=== PATIENT | female | born 1945 | race Caucasian/White ===

== ENCOUNTER → 2016-04-14 | Outpatient (RCR) | payer MEDICARE | END | disposition home or self-care (01) | LOC: PT 01-15 12:11 | PROVIDERS: ATTEND Orthopaedic Surgery | DX: S46.011D Strain of muscle(s) and tendon(s) of the rotator cuff of right shoulder, subsequent encounter (principal); V19.9XXD Pedal cyclist (driver) (passenger) injured in unspecified traffic accident, subsequent encounter | CPT/HCPCS: 97016; 97110; 97140; G8984; G8985 ==

== ENCOUNTER 2016-06-09 08:15 | Outpatient (RCR) | payer MEDICARE ==
--- NOTE | 2016-06-02 15:08 | PT/OT/ST INITIAL EVALUATION ---
Department of Health and Human Services Form Approved [facility] Care Financing Administration OMB No. [id number] PLAN OF CARE/ASSESSMENT FOR OUTPATIENT REHABILITATION (Complete for Initial Claims Only) 1. PATIENT'S NAME Lolly Shukla 2. ACC # [id number] 3. [facility] [id number] 4. PROVIDER NO. [id number] 5. TYPE: PT 6. PRIOR THERAPY The patient had therapy for her right shoulder up until March 2016. None prior for her right knee. 7. PRIMARY DX Right knee scope 8. SECONDARY DX Right knee pain, right knee stiffness, weakness, and difficulty walking. 9. ONSET DATE Surgery 05/26/2016 10. REFERRAL DATE 05/26/2016 11. SOC. DATE 05/28/2016 12. TIME OF EVAL 8:17 a.m. to 9:05 a.m. 12. REFERR[address] PHYSICIAN Dr. Cheema 13. CHARGES/UNITS PT evaluation low complexity 70772 Therapeutic exercise 75371, 2 units 14. G CODES The Lower Extremity Functional Scale rates the patient as [id number] 35% limited and the goal is E9959-GH 0% limited in order to be able to ambulate and return to cleaning her home without deviation. 15. PRIOR LEVEL OF FUNCTION; PERTINENT HISTORY (Prior therapy results, reason for referral.) S: Prior to therapy, the patient did consent to today's evaluation and treatment. The patient is a 70-year-old female referred to physical therapy by Dr. Cheema to address functional limitations secondary to right knee scope performed on 05/26/2016. Mechanism of injury: There was no specific injury. The patient's right knee pain has gotten worse gradually over time due to arthritis. Primary Complaint: Pain in the right knee. Occupational and social history: The patient states she is retired, however, she does currently work in real estate. Functional performance/Prior level of function: The patient was independent in all activities with pain prior to surgery on 05/26/2016. The patient was participating in exercise classes at the [facility], as well. Pain rating: The patient rates the current pain level as 2/10 and describes the pain as an achy pain in her right knee. The pain does not go to any other location. Obstacles to delivery of care: None noted. Aggravating factors: Include walking. Relieving factors: Include resting or standing still. Diagnostic testing: The patient had an MRI prior to surgery and was told that she was [id number] in her right knee. Past medical history: Includes osteoarthritis, history of bone fracture many years ago, which has healed, hypothyroidism. Past surgical history: Includes a left knee scope a couple of years ago, thyroidectomy, hysterectomy, tubal ligation, right rotator cuff repair, LASIK eye surgery and cataract surgery on both eyes. Current medications: Synthroid, sotalol. The patient states she is not currently taking anything for right knee pain. Leisure activities: The patient attends exercises classes at the [facility] frequently. Activity level: Listed as medium. Personal health rating: Listed as good. Patient's Goal: Include using her knee without discomfort. 16. INITIAL ASSESSMENT/SAFETY PRECAUTIONS/MEDICAL COMPLICATIONS (Level of function at start of care. Be specific, use objective measures, list problems.) O: APPEARANCE AND OBSERVATION: The patient ambulates into the clinic today using no assistive device with an antalgic gait pattern favoring her right knee. The patient does not appear to have any significant swelling of the right lower extremity. The patient has 2 incisions on the anterior right knee that have stitches. The patient had taken off post-surgical wrapping previously due to it sliding down her leg. She has no drainage, no signs of infection, no signs or symptoms of a blood clot. The patient was educated in symptoms of infection and blood clot. The patient had covered the 2 incisions with regular Band-Aids and returns to her doctor on 06/03/2016. The patient lives in a home with her . The patient has 2 steps into her home from the garage with no railing and she is currently doing fine with these and no steps in her house that she has to do. She does have a basement, but does not have to go down there frequently. PALPATION: No significant tenderness to palpation of the right knee or lower extremity noted. SPECIAL TESTS: Bilateral lower extremity negative Homans. RANGE OF MOTION/FLEXIBILITY: Active range of motion of the knees left knee flexion 126 degrees; right knee flexion 94 degrees in a supine position. Left knee extension 9 degrees of hyperextension, right knee extension lacking 3 degrees of extension. STRENGTH: I did not formally manual muscle test the right lower extremity due to surgery. Upon observation, the patient would rate a 3-/5 flexion and extension of the right knee. TODAY'S TREATMENT: Included the initial PT evaluation followed by therapeutic exercise and the patient was given handouts for home exercise program. 17. INITIAL POC: (Specify procedures, modalities, short and residential goals) A: This patient presents with the diagnosis of right knee scope performed on 05/26/2016 with functional limitations of right knee pain, right knee stiffness, difficulty walking and weakness. The patient would benefit from physical therapy in order to help restore proper mechanics and motor planning in order to be able to flex and extend the right knee symmetrically with the left knee and to gain strength for ambulation going up and down stairs in order for her to return to her daily activities without deviation. PROGNOSIS: This patient has a good prognosis for increased overall functional capacity with regular therapy attendance and compliance with prescribed home exercise program. CONTRAINDICATIONS, PRECAUTIONS AND OBSTACLES TO DELIVERY OF CARE: No significant contraindications, precautions, or obstacles are noted at this time. INFORMED CONSENT: The prognosis and goals were discussed with the patient, as well as the expected outcome and possible risks. The patient agreed to undergo PT evaluation and further treatment. SHORT TERM GOALS: 1. The patient was rated by the Lower Extremity Functional Scale as [id number] 35% limited and the goal is [id number]-VK 0% limited in order to be able to ambulate and do housecleaning without deviation/ 2. The patient is to have a decrease in pain of the right knee to less than or equal to 1/10 in order to ambulate without deviation. 3. The patient is to have an increase in manual muscle testing of the right knee to 4+/5 in 4 weeks in order to be able to go up and down stairs and return to full participation in her exercise classes and housecleaning without deviation. 4. The patient is to have an increase in active range of motion of the right knee to 0 to 125 degrees in 4 weeks in order to be able to get in and out of a car and perform her normal activity without deviation. 5. The patient is to be independent with a progressive home exercise program. P: Plan to treat this patient 2 times a week for 4 weeks. Treatment to include modalities for pain and inflammation, manual therapy interventions, therapeutic exercise, active and passive range of motion, gait training, balance training, neural reeducation, and patient education and prescription of progressive home exercise program as tolerable. 18. FREQUENCY 2 times a week 19. DURATION 4 weeks 20. FUNCTIONAL LEVEL (End of claim period) 21. PHYSICIAN SIGNATURE ? ON FILE OR ENTER HERE: 22. DATE: I certify the need for these services furnished under this plan of care and if for partial hospitalization. 23. CERTIFICATION FROM THROUGH FORM [id number]
[~2016-06-09 08:15] MED LIST: HYDR-3702 PO; LEVO175T PO; SOTA80TA10 PO
== END 2016-06-18 12:00 | disposition home or self-care (01) ==
LOC: PT 08:15
PROVIDERS: ATTEND Orthopaedic Surgery
DX: M25.561 Pain in right knee (principal); M25.661 Stiffness of right knee, not elsewhere classified; R26.2 Difficulty in walking, not elsewhere classified; R29.898 Other symptoms and signs involving the musculoskeletal system; Z98.890 Other specified postprocedural states
CPT/HCPCS: 97110; 97140; 97161; G8978; G8979